=== PATIENT | male | born 1945 | race Hispanic/Latino ===

== ENCOUNTER 2018-11-06 14:07 | Emergency (ER) | payer MEDICARE ==
[~2018-11-06] VITALS: Ht 167.6 cm; Wt 100.7 kg
--- OUTSIDE RECORDS SUMMARY | 2018-11-06 14:10 | XMS REPORT | Clinical Summary ---
Author Author SARATH Ciash[address] [facility] Address Unknown Phone Unavailable Care Team Providers Care Member Of Technical Staff Name Role Phone Jose Guadalupe Mariano MD PCP Allergies No Known Allergies Medications End Date Status Medication Sig Dispensed Refills Start Date Active atorvastatin (LIPITOR) 40 Take 40 mg by 0 MG tablet mouth daily. Active carvedilol (COREG) 3.125 Take 3.125 mg 0 MG tablet by mouth 2 (two) times daily with breakfast and dinner. Active insulin aspart U-100 Inject 0 (NOVOLOG) 100 unit/mL subcutaneousl InPn y 3 (three) times daily with meals. Active insulin glargine (LANTUS) Inject 0 100 unit/mL injection subcutaneousl y nightly Use as directed . Active lisinopril-hydroCHLOROthi Take 1 tablet 0 azide by mouth 2 (PRINZIDE,ZESTORETIC) (two) times 10-12.5 mg per tablet daily. Active omega-3 fatty acids-fish Take 2 g by 0 oil 340-1,000 mg Cap per mouth 2 (two) capsule times daily. Active tamsulosin (FLOMAX) 0.4 Take 0.4 mg 0 mg Cap 24 hr capsule by mouth daily. 02/17/2018 Discontinued aspirin 81 MG EC tablet Take 81 mg by 0 mouth daily. 03/20/2018 aspirin 325 MG EC tablet Take 1 tablet 30 tablet 0 (325 mg 8 total) by mouth daily for 30 days. 03/19/2018 HYDROcodone-acetaminophen Take 1-2 120 tablet 0 (NORCO 10-325) 10-325 mg tablets by 8 per tablet mouth every 4 (four) hours as needed for Pain for up to 30 days. Max Daily Amount: 12 tablets Active Problems Problem Noted Date S/P knee replacement 02/17/2018 Arthritis of right knee 02/16/2018 DJD (degenerative joint disease) of knee 02/16/2018 Encounters Care Team Description Date Type Specialty Tanna Reid RN Follow-up 02/18/2018 Telephone Anesthesiology Joseph Garcia MD ARTHROPLASTY,KNEE UNILATERAL 02/16/2018 Surgery Annmarie Redman MD 02/16/2018 Anesthesia Event Joseph Garcia MD 02/16/2018 [facility] General Internal Medicine - Encounter 02/17/2018 Pretty Canela PA 02/08/2018 Orders Only after 11/05/2017 Social History Date Tobacco Use Types Packs/Day Years Used Former Smoker Smokeless Tobacco: Never Used Alcohol Use Drinks/Week oz/Week Comments Yes SOCIALLY Sex Assigned at Date Recorded Not on file Industry Job Start Date Occupation Not on file Not on file Not on file Travel End Travel History Travel Start No recent travel history available. Last Filed Vital Signs Time Taken Vital Sign Reading 02/17/2018 3:30 PM CDT Blood Pressure 151/70 02/17/2018 3:30 PM CDT Pulse 70 02/17/2018 3:30 PM CDT Temperature 36.9 C (98.4 F) 02/17/2018 3:30 PM CDT Respiratory Rate 17 02/17/2018 3:30 PM CDT Oxygen Saturation 96% - Inhaled Oxygen - Concentration 02/16/2018 7:23 AM CDT Weight 102.4 kg (225 lb 11.2 oz) 02/16/2018 7:23 AM CDT Height 167.6 cm (5' 6") 02/16/2018 7:23 AM CDT Body Mass Index 36.43 Plan of Treatment Not on file Implants Device Identifier Shelf Expiration Date Model / Serial / Lot Implanted Type Area Manufactur er 06/10/2019 6194-1-001 / / [id number] Cement Bone Smplx Hv 6194-1-001 - Cement/Eladio Right: Knee MONIQUE:ST [id number] ler/Luli BRITTON Implanted: Qty: 1 on 02/16/2018 by Joseph Steinberg MD 10/12/2022 5510-F-[id number] / / [id number] Comp Fem Cr Cholo No.4 R 5510-F-402 - Joints Right: Knee MONIQUE:ST [id number] BRITTON Implanted: Qty: 1 on 02/16/2018 by Joseph Krause MD 06/02/2022 5520-[id number] / / [id number] Baseplt Ayah Tib Cholo No.5 5520-[id number] Joints Right: Knee MONIQUE:ST - [id number] BRITTON Implanted: Qty: 1 on 02/16/2018 by Joseph Krause MD CS 08/09/2022 5530-G-[id number] / / [id number] Insrt Tib #5 9mm 5530-G-509 - Joints Right: Knee MONIQUE:ST [id number] BRITTON Implanted: Qty: 1 on 02/16/2018 by Joseph Krause MD CS Procedures Comments Procedure Name Priority Date/Time Associated Diagnosis RHYTHM STRIP - SCAN 02/18/2018 1:10 PM CDT TRANSFUSION SERVICE 02/17/2018 REPORT - SCAN 6:00 PM CDT POCT-GLUCOSE METER Routine 02/17/2018 12:18 PM CDT POCT-GLUCOSE METER Routine 02/17/2018 8:37 AM CDT HEMOGLOBIN AND HEMATOCRIT Routine 02/17/2018 4:41 AM CDT BASIC METABOLIC PANEL (7) Routine 02/17/2018 4:41 AM CDT VANCOMYCIN LEVEL, TROUGH Timed 02/16/2018 11:14 PM CDT POCT-GLUCOSE METER Routine 02/16/2018 8:49 PM CDT POCT-GLUCOSE METER Routine 02/16/2018 4:29 PM CDT POCT-GLUCOSE METER Routine 02/16/2018 2:46 PM CDT TISSUE EXAM AP Routine 02/16/2018 1:39 PM CDT ARTHROPLASTY,KNEE 02/16/2018 Osteoarthritis of right UNILATERAL 1:25 PM CDT knee, unspecified osteoarthritis type Case Notes 60 MINS PER FAX Special Needs (SPINAL/EP IDURAL WITH ADDUCTOR CANAL BLOCK, MONIQUE DIANE) ANESTHESIA CSE BLOCK Routine 02/16/2018 12:58 PM CDT ANESTHESIA PERIPHERAL Routine 02/16/2018 BLOCK 12:55 PM CDT TYPE AND SCREEN, Routine 02/16/2018 AUTOMATED 11:09 AM CDT POCT-GLUCOSE METER Routine 02/16/2018 10:47 AM CDT after 11/05/2017 Results * RHYTHM STRIP - SCAN (02/18/2018 1:10 PM CDT) Narrative Performed At * TRANSFUSION SERVICE REPORT - SCAN (02/17/2018 6:00 PM CDT) Narrative Performed At * POC-Glucose meter (02/17/2018 12:18 PM CDT) Only the most recent of 6 results within the time period is included. POC-Glucose Meter 242 (H)Comment: TESTED AT 70 - 110 mg/dL [address] [address] Specimen Blood Performing Organization Address City/[facility]/Zipcode Phone Number [address] [address] [facility] * Hemoglobin and hematocrit (02/17/2018 4:41 AM CDT) Hemoglobin 13.0 (L) 13.7 - 17.5 GM/DL [facility] Hematocrit 39.7 (L) 40.1 - 51.0 % [facility] Specimen Blood Performing Organization Address City/[facility]/Zipcode Phone Number [address] [address] [facility] * Basic Metabolic Panel (02/17/2018 4:41 AM CDT) Sodium 134 (L) 136 - 145 meq/L [facility] Potassium 4.5 3.5 - 5.1 meq/L [facility] Chloride 100 98 - 107 meq/L [facility] CO2 25 22 - 29 meq/L [facility] BUN 26 (H) 7 - 21 mg/dL [facility] Creatinine 1.71 (H) 0.57 - 1.25 mg/dL [facility] Glucose 211 (H) 70 - 105 mg/dL [facility] Calcium 8.8 8.4 - 10.2 mg/dL [facility] EGFR 40Comment: ESTIMATED GFR IS mL/min/1.73 sq m [facility] NOT ACCURATE CREATININE [facility] CLEARANCE IN PREDICTING GLOMERULAR FILTRATION RATE. ESTIMATED GFR IS NOT APPLICABLE FOR DIALYSIS PATIENTS. Specimen Blood Performing Organization Address City/State/[place] [address] [facility] * Vancomycin level, trough (02/16/2018 11:14 PM CDT) Vancomycin Tr 16.2 10.0 - 20.0 ug/mL [facility] Specimen Blood Performing Organization Address City/State/[place] [address] [facility] * Tissue Exam (02/16/2018 1:39 PM CDT) Case Report Surgical Pathology [facility] Report [facility] Case: [id number] Authorizing Provider:Joseph Garcia,Collected: 02/16/2018 Odalys MCALLISTER Ordering Location: [facility] Received: 02/16/2018 1428 SERVICES Pathologist: Coco Wilder MD Specimen:Condyle,Right Knee DIAGNOSIS RIGHT KNEE BONES, (PARTIAL) [facility] EXCISION: [facility] - OSTEOARTHRITIS - REACTIVE SYNOVIUM Signing Pathologist Direct Phone Line: [phone] COMMENT Slides from this sample are [facility] received on 03/15/2018 P.M. [facility] CPT Code(s) MO/ew [facility] [address] [facility] [address] CLINICAL HISTORY Osteoarthritis of right knee [facility] SPECIMEN SOURCE Right knee condyle [facility] GROSS DESCRIPTION The specimen is received in a [facility] fluidless container labeled [facility] with patient information and labeled "right knee condyle" and consists of multiple fragments of montejo knee bone and soft tissue measuring 7 x 6 x 2 cm in aggregate. Bone fragments have distinct osteophyte formation with focal areas of eburnation. Section code: A1 and A2, bone submitted for decalcification; A3, soft tissue and bone submitted for decalcification. CG/pl MICROSCOPIC DESCRIPTION The right knee sample shows [facility] sclerotic eburnated bone with [facility] features consistent with osteophytes. Some residual cartilages show clones of chondrocytes and fibrillation. There is reactive synovium. Atypia is not noted. Specimen Tissue - Condyle,Right Knee Performing Organization Address City/State/Zipcode Phone Number [facility] [address] [place] [address] [facility] * ANESTHESIA CSE BLOCK (02/16/2018 12:58 PM CDT) Narrative Performed At Maru Hilliard MD 02/16/2018 12:58 PM CSE Block Patient location during procedure: pre-op Start time: 02/16/2018 12:28 PM End time: 02/16/2018 12:44 PM Reason for block: procedure for pain, at surgeon's request and post-op pain management Staffing Anesthesiologist: MARU HILLIARD Resident/NURSE QUALITY: FEDERICA STRONG Performed by: anesthesiologist and resident/NURSE QUALITY Preanesthetic Checklist Completed: patient identified, site marked, surgical consent, pre-op evaluation, timeout performed, IV checked, risks and benefits discussed and monitors and equipment checked CSE Patient position: sitting Prep: Betadine and site prepped and draped Patient monitoring: heart rate, cafeteria monitor and continuous pulse ox Approach: midline Spinal Needle Needle type: Pencan Needle gauge: 25 G Needle length: 12.7cm. Epidural Needle Injection technique: SUSY saline Needle type: Tuohy Needle gauge: 17 G Needle length: 9 cm Needle insertion depth: 6 cm Location: lumbar (1-5) Catheter Catheter type: end hole Catheter size: 19g. Catheter at skin depth: 11 cm Assessment Sensory level: T10 Events: cerebrospinal fluid and after spinal Additional Notes Patient tolerated the procedure well. Procedure Note Maru Hilliard MD - 02/16/2018 12:55 PM CDT CSE Block Patient location during procedure: pre-op Start time: 02/16/2018 12:28 PM End time: 02/16/2018 12:44 PM Reason for block: procedure for pain, at surgeon's request and post-op pain management Staffing Anesthesiologist: MARU HILLIARD Resident/NURSE QUALITY: FEDERICA STRONG Performed by: anesthesiologist and resident/NURSE QUALITY Preanesthetic Checklist Completed: patient identified, site marked, surgical consent, pre-op evaluation, timeout performed, IV checked, risks and benefits discussed and monitors and equipment checked CSE Patient position: sitting Prep: Betadine and site prepped and draped Patient monitoring: heart rate, cafeteria monitor and continuous pulse ox Approach: midline Spinal Needle Needle type: Pencan Needle gauge: 25 G Needle length: 12.7cm. Epidural Needle Injection technique: SUSY saline Needle type: Tuohy Needle gauge: 17 G Needle length: 9 cm Needle insertion depth: 6 cm Location: lumbar (1-5) Catheter Catheter type: end hole Catheter size: 19g. Catheter at skin depth: 11 cm Assessment Sensory level: T10 Events: cerebrospinal fluid and after spinal Additional Notes Patient tolerated the procedure well. * ANESTHESIA PERIPHERAL BLOCK (02/16/2018 12:55 PM CDT) Narrative Performed At Maru Hilliard MD 02/16/2018 12:55 PM Peripheral Block Patient location during procedure: pre-op Start time: 02/16/2018 12:48 PM End time: 02/16/2018 12:52 PM Reason for block: procedure for pain, at surgeon's request and post-op pain management Staffing Anesthesiologist: MARU HILLIARD Resident/NURSE QUALITY: FEDERICA STRONG Performed by: anesthesiologist and resident/NURSE QUALITY Preanesthetic Checklist Completed: patient identified, site marked, surgical consent, pre-op evaluation, timeout performed, IV checked, risks and benefits discussed and monitors and equipment checked Peripheral Block Patient position: supine Prep: ChloraPrep and site prepped and draped Patient monitoring: heart rate, cafeteria monitor and continuous pulse ox Block type: Adductor canal Laterality: right Injection technique: catheter Procedures: ultrasound guided and landmark technique Local infiltration: ropivicaine Infiltration strength: 0.5 % Dose: 20 mL Needle Needle type: Tuohy Needle gauge: 17 G Needle length: 100 mm Catheter type: open end Catheter size: 19 G Test dose: negative Assessment Injection assessment: negative aspiration for heme, no paresthesia on injection, incremental injection and local visualized surrounding nerve on ultrasound Paresthesia pain: none Heart rate change: no Slow fractionated injection: yes Procedure Note Maru Hilliard MD - 02/16/2018 12:53 PM CDT Peripheral Block Patient location during procedure: pre-op Start time: 02/16/2018 12:48 PM End time: 02/16/2018 12:52 PM Reason for block: procedure for pain, at surgeon's request and post-op pain management Staffing Anesthesiologist: MARU HILLIARD Resident/NURSE QUALITY: FEDERICA STRONG Performed by: anesthesiologist and resident/NURSE QUALITY Preanesthetic Checklist Completed: patient identified, site marked, surgical consent, pre-op evaluation, timeout performed, IV checked, risks and benefits discussed and monitors and equipment checked Peripheral Block Patient position: supine Prep: ChloraPrep and site prepped and draped Patient monitoring: heart rate, cafeteria monitor and continuous pulse ox Block type: Adductor canal Laterality: right Injection technique: catheter Procedures: ultrasound guided and landmark technique Local infiltration: ropivicaine Infiltration strength: 0.5 % Dose: 20 mL Needle Needle type: Tuohy Needle gauge: 17 G Needle length: 100 mm Catheter type: open end Catheter size: 19 G Test dose: negative Assessment Injection assessment: negative aspiration for heme, no paresthesia on injection, incremental injection and local visualized surrounding nerve on ultrasound Paresthesia pain: none Heart rate change: no Slow fractionated injection: yes * Type and screen, automated (02/16/2018 11:09 AM CDT) ABO/RH AUTOMATED (BEAKER) A POSITIVE [facility] Ab Scrn NEGATIVE [facility] Specimen Blood Performing Organization Address City/State/Zipcode Phone Number [facility] [address] [place] [address] [facility] after 11/05/2017 Insurance Payer Benefit Subscriber ID Type Phone Address Plan / Group [facility] xxxxxxxxxxx MEDICARE ADV xxxxxxxxxx Other Govt FOR LIFE (, [place], [employer], etc.) Advance Directives For more information, please contact: [facility] [address] [place] [address] Date Inactivated Comments Code Status Date Activated 02/16/2018 5:18 PM Full Code 02/16/2018 7:59 AM This code status was determined by: Patient
--- OUTSIDE RECORDS SUMMARY | 2018-11-06 14:10 | XMS REPORT ---
Author Author [facility] Address Unknown Phone Unavailable Care Team Providers Care Management Rep Name Role Phone JOSE CARLOS GARCIA Unavailable Unavailable Problems This patient has no known problems. Allergies, Adverse Reactions, Alerts This patient has no known allergies or adverse reactions. Medications This patient has no known medications. Results Test Description Test Time Test Comments Text Results Atomic Results Result Comments TISSUE EXAM 2018-03-16 17:17:00 Surgical Pathology Report Case: [id number] Authorizing Provider: Joseph Garcia, Collected: 02/16/2018 1339 MD Ordering Location: [facility] Received: 02/16/2018 1428 SERVICES Pathologist: Coco Wilder MD Specimen: Sergei lewisle,Right Knee RIGHT KNEE BONES, (PARTIAL) EXCISION: - OSTEOARTHRITIS - REACTIVE SYNOVIUM Signing Pathologist Direct Phone Line: [phone] signed by Coco Wilder MD on 03/16/2018 at 5:17 PMSlides from this sample are received on 03/15/2018 P.M. MO/[id number] of right kneeRight knee condyleThe specimen is received in a fluidless container labeled with patient information and labeled "right knee condyle" and consists of multiple fragments of montejo knee bone and soft tissue measuring 7 x 6 x 2 cm in aggregate. Bone fragments have distinct osteophyte formation with focal areas of eburnation. Section code: A1 and A2, bone submitted for decalcification; A3, soft tissue and bone submitted for decalcification. CG/pl The right knee sample shows sclerotic eburnated bone with features consistent with osteophytes. Some residual cartilages show clones of chondrocytes and fibrillation. There is reactive synovium. Atypia is not noted. POCT-GLUCOSE METER 2018-02-17 12:22:00 POC-GLUCOSE METER (BEAKER) (test vowr=9605) 242 mg/dL 70-110 TESTED AT [facility] [address] [facility] [address] POCT-GLUCOSE [id number] 08:47:00* Test Item Value Reference Range Comments POC-GLUCOSE METER (BEAKER) (test dovf=8862) 200 mg/dL 70-110 TESTED AT [place] [id number] [facility] [address] BASIC METABOLIC [id number] 05:14:00* Test Item Value Reference Range Comments SODIUM (BEAKER) (test gvin=548) 134 meq/L 136-145 POTASSIUM (BEAKER) (test pmyc=781) 4.5 meq/L 3.5-5.1 CHLORIDE (BEAKER) (test leth=858) 100 meq/L 98-107 CO2 (BEAKER) (test gvnz=238) 25 meq/L 22-29 BLOOD UREA NITROGEN (BEAKER) (test iolh=220) 26 mg/dL 7-21 CREATININE (BEAKER) (test plwg=383) 1.71 mg/dL 0.57-1.25 GLUCOSE RANDOM (BEAKER) (test onnj=968) 211 mg/dL 70-105 CALCIUM (BEAKER) (test pakl=083) 8.8 mg/dL 8.4-10.2 EGFR (BEAKER) (test dypg=7821) 40 mL/min/1.73 sq m ESTIMATED GFR IS NOT ACCURATE CREATININE CLEARANCE IN PREDICTING GLOMERULAR FILTRATION RATE. ESTIMATED GFR IS NOT APPLICABLE FOR DIALYSIS PATIENTS. HEMOGLOBIN AND [id number] 04:51:00* Test Item Value Reference Range Comments HEMOGLOBIN (BEAKER) (test nqro=508) 13.0 GM/DL 13.7-17.5 HEMATOCRIT (BEAKER) (test hzme=285) 39.7 % 40.1-51.0 VANCOMYCIN LEVEL, [id number] 00:13:00* Test Item Value Reference Range Comments VANCOMYCIN TROUGH (BEAKER) (test cdjm=800) 16.2 ug/mL 10.0-20.0 POCT-GLUCOSE [id number] 21:07:00* Test Item Value Reference Range Comments POC-GLUCOSE METER (BEAKER) (test zocx=0013) 116 mg/dL 70-110 TESTED AT [facility] [address] [facility] [address] POCT-GLUCOSE [id number] 16:33:00* Test Item Value Reference Range Comments POC-GLUCOSE METER (BEAKER) (test nnki=6282) 65 mg/dL 70-110 TESTED AT [address] [address] POCT-GLUCOSE [id number] 14:48:00* Test Item Value Reference Range Comments POC-GLUCOSE METER (BEAKER) (test vbxb=9264) 63 mg/dL 70-110 TESTED AT [address] [address] POCT-GLUCOSE [id number] 10:48:00* Test Item Value Reference Range Comments POC-GLUCOSE METER (BEAKER) (test srrt=2929) 95 mg/dL 70-110 TESTED AT [address] [address]
== END 2018-11-06 14:23 | disposition home or self-care (01) ==
LOC: ER 14:07
DX: L03.116 Cellulitis of left lower limb (principal); I10 Essential (primary) hypertension; E11.9 Type 2 diabetes mellitus without complications
CPT/HCPCS: 99282

== ENCOUNTER 2019-11-12 10:35 | Inpatient (IN) | payer MEDICARE, OTHER ==
[~2019-11-12] VITALS: Ht 167.6 cm; Wt 103.4 kg
[2019-11-12] MEDS ORDERED: SODIUM CHLORIDE 0.9% 1000ML 1,000 ML IV STA (10:54)
[2019-11-12] MEDS ORDERED: PIPER-TAZ 3.375 GM 50 ML IV ONE (11:00)
[2019-11-12] MEDS ORDERED: VANCOMYCIN 1GM/NS 250 ML 250 ML IV ONE (11:00)
[2019-11-12 11:10] LABS: BASOPHILS % 0.2 % (0.0-1.0); EOSINOPHILS # (AUTO) 0.2 (0.0-0.4); EOSINOPHILS % 1.3 % (0.0-6.0); HEMATOCRIT 39.3 % (38.2-49.6); HEMOGLOBIN 13.4 g/dL (14.0-18.0); LYMPHOCYTES # (AUTO) 2.2 (1.0-3.2); LYMPHOCYTES % 19.6 % (18.0-39.1); MEAN CORPUSCULAR HEMOGLOBIN 31.6 pg (28-32); MEAN CORPUSCULAR HGB CONC 34.1 g/dL (31-35); MEAN CORPUSCULAR VOLUME 92.7 fL (81-99); MONOCYTES # (AUTO) 1.2 (0.2-0.8); MONOCYTES % 10.5 % (4.4-11.3); NEUTROPHILS # (AUTO) 7.7 (2.1-6.9); NEUTROPHILS % 68.1 % (38.7-80.0); PLATELET COUNT 270 x10e3/uL (140-360); RED BLOOD COUNT 4.24 x10e6/uL (4.3-5.7); RED CELL DISTRIBUTION WIDTH 14.4 % (11.7-14.4)
[2019-11-12] MEDS ORDERED: FLECTOR1 EACH (11:12)
[2019-11-12] MEDS ORDERED: TIZANIDINE HCL4 M1 PO (11:12)
[2019-11-12] MEDS ORDERED: LISINOPRIL-HCT1 EACH PO (11:12)
[2019-11-12] MEDS ORDERED: ASPIR 8181 MG PO (11:15)
[2019-11-12] MEDS ORDERED: FLOMAX0.4 MG PO (11:15)
[2019-11-12] MEDS ORDERED: ULTRAM50 MG PO (11:15)
[2019-11-12] MEDS ORDERED: CARVEDILOL3.125 MG PO (11:15)
[2019-11-12] MEDS ORDERED: OMEGA 3 1,0001 EACH PO (11:15)
[2019-11-12] MEDS ORDERED: LANTUS 3ML100 UNITS/ SC (11:15)
[2019-11-12 11:20] LABS: INR 1.04; PROTHROMBIN TIME 14.2 seconds (11.9-14.5)
[2019-11-12 11:21] LABS: PARTIAL THROMBOPLASTIN TIME 32.4 seconds (23.8-35.5)
[2019-11-12 11:29] LABS: ALBUMIN/GLOBULIN RATIO 0.6 (0.8-2.0); ANION GAP 14.9 mmol/L (8-16); CALCIUM 10.4 mg/dL (8.4-10.2); CREATININE, SERUM 1.78 mg/dL (0.72-1.25); POTASSIUM 3.9 mmol/L (3.5-5.1)
[2019-11-12 11:35] LABS: CREATINE KINASE MB 1.3 ng/mL (0-5.0)
[2019-11-12] MEDS ORDERED: ONDANSETRON HCL INJ 2MG/ML 2ML 2 MG/ML VIAL IV PRN ×2 (11:45→12:30)
[2019-11-12] MEDS ORDERED: HYDROCODONE/APAP 7.5MG-325MG 1 EA TAB PO NR (11:45)
[2019-11-12] MEDS ORDERED: TETANUS/DIPHTHERIA TOX ADULT 0.5 ML SYR IM ONE (12:00)
--- NOTE | 2019-11-12 12:00 | Diagnostic Imaging Report ---
Exam: Right wrist 3 views, right hand 3 views History: Pain, swelling, no history of trauma Comparison: None. Findings: No acute, displaced fracture or dislocation. Appropriate alignment between the distal radius, lunate, and capitate is maintained on the lateral wrist radiograph. Joint spaces are relatively well-maintained. There is narrowing and subchondral cystic change of the first carpometacarpal joint. Soft tissues are notable for atherosclerotic vascular calcifications and mild diffuse swelling of the hand. Impression: No acute osseous abnormality. 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 Signed by: Dr. Joseph Winston M.D. on 11/12/2019 11:56 AM
[2019-11-12] MEDS ORDERED: ATORVASTATIN CA20 MG PO (13:09)
--- NOTE | 2019-11-12 13:40 | NUR ---
called placed to his DUNIA; to drop off his cell [facility]
[2019-11-12] MEDS ORDERED: PIPERACILLIN/TAZO 2.25 GM 50 ML IV SCH (15:00)
[2019-11-12] MEDS ORDERED: NOVOLOG100 UNIT/1 SC ×3 (15:08)
[2019-11-12] MEDS ORDERED: GLIMEPIRIDE4 MG PO (15:08)
[2019-11-12 15:20] VITALS: BP 139/75
[2019-11-12 16:07] VITALS: BP 139/75
[2019-11-12 16:13] VITALS: BP 139/75
[2019-11-12 17:17] VITALS: BP 139/75
[2019-11-12] MEDS ORDERED: ACETAMINOPHEN 325 MG TAB PO PRN (17:30)
[2019-11-12] MEDS ORDERED: CLONIDINE HCL 0.1 MG TAB PO PRN (17:30)
[2019-11-12] MEDS ORDERED: SODIUM CHLORIDE 0.9% 250ML 250 ML ONE (18:15)
[2019-11-12] MEDS: CEFEPIME 1GM/NS 0.9% 50 ML 50 ML IV SCH (18:29)
[2019-11-12] MEDS: ENOXAPARIN SOD INJ 40 MG/0.4 ML SYR SC SCH (18:29)
--- NOTE | 2019-11-12 19:35 | NUR ---
RECEIVED THE PATIENT IN BED AOX3 RT HAND CELLULITIS RED AND SWOLLEN LEFT BKA. TELE #[phone] SHOWS SR .DENIES PAIN TOR .CALL LIGHT WITH IN REACH .CONTINUE TO MONITOR
[2019-11-12 19:57] VITALS: BP 139/75
[2019-11-12 20:00] VITALS: BP 136/74
--- NOTE | 2019-11-12 20:16 | NUR ---
ORTHOPEDIC CONSULTATION 74 year old right hand dominant male presents to the ED with 5 day history of right hand pain and swelling that worsened significantly over the past 24 hours. He states that he had moved a bag of grass with the right hand earlier in the week. Denies any fevers, chills or presently worsening pain. Pain localized to dorsum of right hand. No numbness, paresthesias or loss of distal motor function. No other area of pain. No history of prior injury to the area. PMDHx: HTN, Hyperlipidemia, Diabetes, Gout SurgHx: Back Surgery, Hernia Repair, Left Knee Surgery, Total Knee Arthroplasty Allergies: NKDA FamHx: Non-contributory SocHx: Denies Tob, EtOH or Drgu Use Meds: See Reconciliation VS T 97.9 (Max 98.4) HR 75 RR 20 BP 139/75 O2 99% Gen: No Acute Distress, AAOx3 Right Hand Swelling noted on dorsum of hand, just proximal to wrist crease extending to metacarpal heads Mild erythema No open lesions or sores No obvious fluctuance or collection noted Limited AROM of MCP and Wrist Motor: + AIN, PIN, Radial, Median, Ulnar Sensation grossly intact Pulses + Radial, good capillary refill Compartments soft Xrays: Right Hand and Wrist : No gross fracture or dislocation noted. Degenerative changes noted at PIP and DIP joints of several digits WBC 11.26, Hgb 13.4/39.3 74 year old male with right hand & wrist cellulitis Plan for right hand MRI to rule out abscess Continue antibiotics as per medicine/ID Warm compresses Elevation Follow up ESR & CRP Jacqueline Curry, DO [facility] [place]
[2019-11-12] MEDS ORDERED: FAMOTIDINE 20 MG/2 ML VIAL IV SCH (21:00)
[2019-11-12] MEDS: ATORVASTATIN 20 MG TAB PO SCH (21:04)
[2019-11-12] MEDS: HYDROCODONE/APAP 7.5MG-325MG 1 EA TAB PO PRN (21:04)
[2019-11-12] MEDS: INSULIN LISPRO 100 UNIT/1 ML 3ML VIAL SQ SCH (21:15)
[2019-11-13] VITALS (8 sets, daily range): BP systolic 141–148; BP diastolic 68–81
[2019-11-13] MEDS: CEFEPIME 1GM/NS 0.9% 50 ML 50 ML IV SCH ×2 (05:07→16:39)
[2019-11-13 05:14] LABS: CLARITY,URINE CLEAR (CLEAR); COLOR,URINE YELLOW (YELLOW); LEUKOCYTE ESTERASE ,URINE NEGATIVE (NEGATIVE); NITRITE,URINE NEGATIVE (NEGATIVE); PROTEIN,URINE DIPSTICK 2+ (NEGATIVE)
[2019-11-13 05:15] LABS: BILIRUBIN,URINE NEGATIVE (NEGATIVE); KETONES,URINE NEGATIVE (NEGATIVE); URINE UROBILINOGEN 1 mg/dL (0.2 - 1)
--- NOTE | 2019-11-13 05:28 | NUR ---
PT C/O PAIN AT RIGHT HAND GIVEN ORDERED PAIN MEDICATION .URINE SENT TO LAB,CALL LIGHT WITH IN REACH ,CONTINUE TO MONITOR
[2019-11-13 05:29] LABS: BACTERIA,URINE FEW /HPF; EPITHELIAL CELLS,URINE RARE /LPF; WBC,URINE (MAN) 0-5 /HPF (0-5)
[2019-11-13 05:49] LABS: BASOPHILS % 0.1 % (0.0-1.0); EOSINOPHILS # (AUTO) 0.2 (0.0-0.4); EOSINOPHILS % 1.8 % (0.0-6.0); HEMATOCRIT 38.5 % (38.2-49.6); HEMOGLOBIN 12.7 g/dL (14.0-18.0); LYMPHOCYTES # (AUTO) 2.8 (1.0-3.2); MEAN CORPUSCULAR HEMOGLOBIN 30.8 pg (28-32); MEAN CORPUSCULAR VOLUME 93.4 fL (81-99); NEUTROPHILS % 59.7 % (38.7-80.0); PLATELET COUNT 256 x10e3/uL (140-360); RED BLOOD COUNT 4.12 x10e6/uL (4.3-5.7); RED CELL DISTRIBUTION WIDTH 14.3 % (11.7-14.4)
[2019-11-13 06:08] LABS: ALBUMIN/GLOBULIN RATIO 0.6 (0.8-2.0); CALCIUM 9.7 mg/dL (8.4-10.2); CREATININE, SERUM 1.62 mg/dL (0.72-1.25)
--- NOTE | 2019-11-13 07:00 | NUR ---
BEDSIDE SHIFT REPORT RECEIVED FROM THE COLD HEADER OPERATOR RN. EDUCATED PT ABOUT FALL PRECAUTIONS. PT VERBALIZED UNDERSTANDING. CALL LIGHT WITH IN EASY REACH. INSTRUCTED PT TO USE CALL LIGHT FOR ALL THE NEEDS. BED IS LOW AND LOCKED. SIDE RAILS X2. BED ALARM IS ON. PT DENIES NEEDS AT THIS TIME.
--- NOTE | 2019-11-13 07:08 | NUR ---
BEDSIDE REPORT GIVEN TO THE ONCOMING NURSE
[2019-11-13] MEDS: INSULIN LISPRO 100 UNIT/1 ML 3ML VIAL SQ SCH ×4 (08:30→21:15)
[2019-11-13] MEDS: ASPIRIN 81 MG CHEW TAB PO SCH (09:11)
[2019-11-13] MEDS: VANCOMYCIN 1GM/NS 250 ML 250 ML IV SCH (09:11)
[2019-11-13] MEDS: CARVEDILOL 3.125 MG TAB PO SCH ×2 (09:12→16:23)
[2019-11-13] MEDS: TAMSULOSIN HCL 0.4 MG CAP PO SCH (09:12)
--- NOTE | 2019-11-13 10:00 | NUR ---
WARM PROVIDED FOR THE PT. RIGHT HAND ELEVATED WITH PILLOWS PER THE ORDER.
--- NOTE | 2019-11-13 12:48 | NUR ---
ORTHOPEDIC PROGRESS NOTE Patient seen & examined sitting in chair in room. Patient continues to complain of right hand swelling. No new fevers or chills, no worsening in pain. VS 97.8 HR 84 RR 22 BP 148/68 O2 96% Right Hand Improved erythema, persistent swelling No pain with PROM of wrist and MCP Motor: + AIN, PIN, Radial, Median, Ulnar Sensation grossly intact Pulses + Radial, good capillary refill Compartments soft 74 year old M with Right Hand Cellulitis Follow up MRI Continue Antibiotics as per Med/ID Analgesics Strict Elevation DVT Prophylaxis Warm Compresses Discussed case with nurse and patient Jacqueline Curry, DO [facility] [place]
[2019-11-13] MEDS: INSULIN GLARGINE 100 UNITS/ML VIAL SQ SCH (12:55)
[2019-11-13] MEDS: GLIMEPIRIDE 2 MG TAB PO SCH (12:55)
--- NOTE | 2019-11-13 15:16 | Diagnostic Imaging Report ---
TECHNIQUE: Magnetic resonance imaging of the RIGHT HAND was performed WITHOUT injected contrast. HISTORY: Hand pain, cellulitis COMPARISON: None. FINDINGS: Bones: No focal or infiltrative bone marrow replacing abnormalities identified. No acute fracture or osteonecrosis. Joints: No focal lesions are seen. Soft Tissues: Soft tissue swelling throughout the hand, most prominent dorsally. No discrete abscess. Focus of susceptibility artifact involving the dorsal ulnar side overlying the fourth metacarpal coronal image 26 and axial image 19. IMPRESSION: Soft tissue edema/cellulitis of the right hand. No abscess or osteomyelitis. Focus of susceptibility artifact dorsal ulnar hand overlying the fourth metacarpal may reflect small foreign body. Signed by: Dr. Nathan Sams M.D. on 11/13/2019 3:12 PM
[2019-11-13] MEDS: ENOXAPARIN SOD INJ 40 MG/0.4 ML SYR SC SCH (16:23)
[2019-11-13] MEDS: HYDROCODONE/APAP 7.5MG-325MG 1 EA TAB PO PRN (16:25)
--- NOTE | 2019-11-13 19:00 | NUR ---
BEDSIDE SHIFT REPORT GIVEN TO THE CARGO MATE RN. PT DENIED FURTHER NEEDS.
--- NOTE | 2019-11-13 19:05 | NUR ---
Bedside nursing report with morning nurse. Pt sitting up in bed. Pt c/o mild pain to right hand, instructed to elevated hand on pillow. Call light within reach. Bed low and locked.
[2019-11-13] MEDS: ATORVASTATIN 20 MG TAB PO SCH (21:15)
[2019-11-14] VITALS (9 sets, daily range): BP systolic 92–174; BP diastolic 48–77
[2019-11-14] MEDS: CEFEPIME 1GM/NS 0.9% 50 ML 50 ML IV SCH ×2 (05:30→16:53)
[2019-11-14 05:35] LABS: BASOPHILS % 0.2 % (0.0-1.0); EOSINOPHILS # (AUTO) 0.3 (0.0-0.4); HEMATOCRIT 34.7 % (38.2-49.6); HEMOGLOBIN 11.6 g/dL (14.0-18.0); LYMPHOCYTES # (AUTO) 2.3 (1.0-3.2); LYMPHOCYTES % 25.1 % (18.0-39.1); MEAN CORPUSCULAR HEMOGLOBIN 31.2 pg (28-32); MEAN CORPUSCULAR HGB CONC 33.4 g/dL (31-35); MEAN CORPUSCULAR VOLUME 93.3 fL (81-99); MONOCYTES # (AUTO) 0.9 (0.2-0.8); MONOCYTES % 10.2 % (4.4-11.3); NEUTROPHILS # (AUTO) 5.6 (2.1-6.9); NEUTROPHILS % 61.3 % (38.7-80.0); PLATELET COUNT 267 x10e3/uL (140-360); RED BLOOD COUNT 3.72 x10e6/uL (4.3-5.7); RED CELL DISTRIBUTION WIDTH 14.1 % (11.7-14.4)
[2019-11-14 06:02] LABS: ANION GAP 11.7 mmol/L (8-16); CALCIUM 9.2 mg/dL (8.4-10.2); CREATININE, SERUM 1.43 mg/dL (0.72-1.25); POTASSIUM 3.7 mmol/L (3.5-5.1)
--- NOTE | 2019-11-14 07:00 | NUR ---
Received patient lying in bed with eyes open. Respiration even and unlabored without SOB. Call light in reach.
[2019-11-14] MEDS: INSULIN LISPRO 100 UNIT/1 ML 3ML VIAL SQ SCH ×4 (07:30→21:50)
[2019-11-14] MEDS: VANCOMYCIN 1GM/NS 250 ML 250 ML IV SCH ×2 (08:28→21:00)
[2019-11-14] MEDS: TAMSULOSIN HCL 0.4 MG CAP PO SCH (08:29)
[2019-11-14] MEDS: GLIMEPIRIDE 2 MG TAB PO SCH (08:29)
[2019-11-14] MEDS: CARVEDILOL 3.125 MG TAB PO SCH ×2 (08:29→16:53)
[2019-11-14] MEDS: ASPIRIN 81 MG CHEW TAB PO SCH (08:29)
[2019-11-14] MEDS: INSULIN GLARGINE 100 UNITS/ML VIAL SQ SCH (08:32)
[2019-11-14] MEDS: COLCHICINE 0.6 MG TAB PO SCH ×2 (11:53→16:52)
[2019-11-14] MEDS: ENOXAPARIN SOD INJ 40 MG/0.4 ML SYR SC SCH (16:53)
[2019-11-14] MEDS ORDERED: ENOXAPARIN 30 MG/0.3 ML SYR SC SCH ×2 (17:00)
[2019-11-14] MEDS: HYDROCODONE/APAP 7.5MG-325MG 1 EA TAB PO PRN (17:20)
--- NOTE | 2019-11-14 19:05 | NUR ---
Report given to overnight babysitter. Respiration even and unlabored without SOB. Call light in reach.
--- NOTE | 2019-11-14 19:15 | NUR ---
Completed nursing report with morning nurse. Pt sitting up in bed. Denies pain at this time. Call light within reach. Bed low and locked.
--- NOTE | 2019-11-14 20:16 | NUR ---
ORTHOPEDIC PROGRESS NOTE Patient seen & examined, feeling mildly better. No fevers or chills. Improved function and decreased swelling VS T 99.6 HR 75 RR 20 BP 147/66 O2 95% Right Hand Decreased swelling & erythema Improved motion Motor: + AIN, PIN, Radial, Median, Ulnar Sensation grossly intact Pulses + Radial Compartments soft No TTP of metacarpal bases especially at 3rd and 4th base No fluctuance or abscess appreciated 74 year old male with right hand cellulitis Continue Antibiotics as per ID/medicine Analgesics Elevation RUE Warm compresses No acute orthopedic intervention required at this time If condition worsens, please feel free to reconsult Follow up in office in 1 week Jacqueline Curry, DO
[2019-11-14] MEDS: ATORVASTATIN 20 MG TAB PO SCH (21:00)
[2019-11-15] VITALS (9 sets, daily range): BP systolic 120–165; BP diastolic 60–92
[2019-11-15 05:30] LABS: BASOPHILS % 0.2 % (0.0-1.0); EOSINOPHILS # (AUTO) 0.3 (0.0-0.4); EOSINOPHILS % 3.4 % (0.0-6.0); HEMATOCRIT 34.2 % (38.2-49.6); HEMOGLOBIN 11.3 g/dL (14.0-18.0); LYMPHOCYTES # (AUTO) 2.2 (1.0-3.2); LYMPHOCYTES % 25.1 % (18.0-39.1); MEAN CORPUSCULAR HEMOGLOBIN 30.8 pg (28-32); MEAN CORPUSCULAR VOLUME 93.2 fL (81-99); MONOCYTES # (AUTO) 0.9 (0.2-0.8); MONOCYTES % 10.4 % (4.4-11.3); NEUTROPHILS # (AUTO) 5.4 (2.1-6.9); NEUTROPHILS % 60.7 % (38.7-80.0); PLATELET COUNT 285 x10e3/uL (140-360); RED BLOOD COUNT 3.67 x10e6/uL (4.3-5.7)
[2019-11-15] MEDS: CEFEPIME 1GM/NS 0.9% 50 ML 50 ML IV SCH ×2 (05:30→17:23)
[2019-11-15 05:52] LABS: ANION GAP 13.8 mmol/L (8-16); CALCIUM 9.4 mg/dL (8.4-10.2); CREATININE, SERUM 1.44 mg/dL (0.72-1.25); POTASSIUM 3.8 mmol/L (3.5-5.1)
[2019-11-15] MEDS: HYDROCODONE/APAP 7.5MG-325MG 1 EA TAB PO PRN ×2 (05:55→21:03)
--- NOTE | 2019-11-15 06:00 | NUR ---
Pt c/o 9/10 pain to right ankle, medicated with prn [place]. No acute distress noted. Call light within reach.
--- NOTE | 2019-11-15 07:10 | NUR ---
Received patient lying in bed with eyes open. Respiration even and unlabored without SOB. Call light in reach
[2019-11-15] MEDS: INSULIN LISPRO 100 UNIT/1 ML 3ML VIAL SQ SCH ×4 (07:30→21:00)
[2019-11-15] MEDS: VANCOMYCIN 1GM/NS 250 ML 250 ML IV SCH (08:44)
[2019-11-15] MEDS: ASPIRIN 81 MG CHEW TAB PO SCH (08:44)
[2019-11-15] MEDS: GLIMEPIRIDE 2 MG TAB PO SCH (08:44)
[2019-11-15] MEDS: TAMSULOSIN HCL 0.4 MG CAP PO SCH (08:45)
[2019-11-15] MEDS: CARVEDILOL 3.125 MG TAB PO SCH ×2 (08:45→17:23)
[2019-11-15] MEDS: COLCHICINE 0.6 MG TAB PO SCH ×2 (08:45→17:23)
[2019-11-15] MEDS: INSULIN GLARGINE 100 UNITS/ML VIAL SQ SCH (08:46)
[2019-11-15] MEDS: ENOXAPARIN SOD INJ 40 MG/0.4 ML SYR SC SCH (17:23)
--- NOTE | 2019-11-15 19:13 | NUR ---
Report given to wrapper caser. Respiration even and unlabored without SOB. Call light in reach.
[2019-11-15] MEDS ORDERED: ONDANSETRON HCL 4 MG ORAL DISINTEGRATING TAB PO PRN (19:15)
[2019-11-15] MEDS: ATORVASTATIN 20 MG TAB PO SCH (21:01)
--- NOTE | 2019-11-15 21:05 | NUR ---
PATIENT C/O 10 pain to right ankle, medicated with PRN [place] PO. No acute distress noted. Call light within reach
--- NOTE | 2019-11-15 21:40 | NUR ---
GOOD RELIEF OBTAINED WITH PRN [place] FOR LEG PAIN 10/19, PATIENT SEEN SLEEPING, NO DISTRESS NOTED, CALL LIGHT WITHIN REACH, WILL CONTINUE TO MONITOR
[2019-11-16] VITALS (8 sets, daily range): BP systolic 118–162; BP diastolic 66–88
[2019-11-16] MEDS: CEFEPIME 1GM/NS 0.9% 50 ML 50 ML IV SCH (05:15)
[2019-11-16] MEDS: COLCHICINE 0.6 MG TAB PO SCH (08:26)
[2019-11-16] MEDS: ASPIRIN 81 MG CHEW TAB PO SCH (08:26)
[2019-11-16] MEDS: GLIMEPIRIDE 2 MG TAB PO SCH (08:26)
[2019-11-16] MEDS: CARVEDILOL 3.125 MG TAB PO SCH (08:27)
[2019-11-16] MEDS: TAMSULOSIN HCL 0.4 MG CAP PO SCH (08:27)
[2019-11-16] MEDS ORDERED: VANCOMYCIN HCL 1.25 GM in SODIUM CHLORIDE 0.9% 250ML 250 ML IV SCH (08:30)
[2019-11-16] MEDS: INSULIN GLARGINE 100 UNITS/ML VIAL SQ SCH (09:08)
[2019-11-16] MEDS: INSULIN LISPRO 100 UNIT/1 ML 3ML VIAL SQ SCH ×2 (09:08→11:30)
--- NOTE | 2019-11-16 11:44 | NUR ---
IMM letter delivered and explained to pt. He verbalized understanding. States he's ready to discharge home. Signed copy placed in chart. Copy to pt.
--- NOTE | 2019-11-16 19:19 | NUR ---
Bedside shift rounding complete, report given to oncoming nurse, pt stable at this time.
--- NOTE | 2019-11-17 04:16 | Discharge Summary ---
PRIMARY CARE DOCTOR: Dr. Jose Guadalupe Mariano. FINAL DIAGNOSIS: Right hand and right wrist cellulitis. SECONDARY DIAGNOSES: 1. Stage 3 chronic kidney disease due to diabetes, stable. 2. Obesity. 3. Right ankle gout. CONSULTANTS: Dr. Curry, Orthopedics. PROCEDURE/STUDIES PERFORMED: 1. Right arm venous Doppler was negative for DVT. 2. Right hand MRI was negative for abscess. HISTORY: Per [facility] HOSPITAL COURSE: The patient was put on IV vancomycin and cefepime. His right hand cellulitis responded well. At this time, the patient will go home on renal dose Keflex for another week. The patient was evaluated by Orthopedic surgeon. While in the hospital, the patient also has a mild flare up of his right ankle gout. Colchicine was started and he did well with that. I have also updated his primary care doctor about this visit, and the patient will follow up with him in one week. The patient was seen and examined today. It took 32 minutes total to discharge this patient today including updating the PCP. CONDITION ON DISCHARGE: Improved. DISCHARGE MEDICATIONS: Please see medication reconciliation form. MD DHRUV Loja/STEVE /[id number] cc: [facility]
== END 2019-11-16 12:55 | disposition home or self-care (01) | DRG 603 ==
LOC: ER 10:35 → ERHOLD 12:28 → MED/SURG2 14:53
PROVIDERS: ADMIT Internal Medicine; ATTEND Internal Medicine
DX: L03.113 Cellulitis of right upper limb (principal); N17.9 Acute kidney failure, unspecified; I12.9 Hypertensive chronic kidney disease with stage 1 through stage 4 chronic kidney disease, or unspecified chronic kidney disease; E11.22 Type 2 diabetes mellitus with diabetic chronic kidney disease; N18.3 Chronic kidney disease, stage 3 (moderate); Z79.4 Long term (current) use of insulin; M10.9 Gout, unspecified; N40.0 Benign prostatic hyperplasia without lower urinary tract symptoms; E78.5 Hyperlipidemia, unspecified
CPT/HCPCS: 36415; 80048; 80053; 80202; 81001; 82550; 82553; 82948; 83605; 83735; 84484; 84550; 85025; 85610; 85651; 85730; 86140; 87040; 87086; 87635; 90471; 90714; 93971; 99284; J0692; J1650; J1815; J2405; J2543; J3370; J7030; J7050

== ENCOUNTER 2021-12-25 09:02 | Inpatient (IN) | payer MEDICARE ==
[~2021-12-25] VITALS: Ht 167.6 cm; Wt 103.4 kg
[~2021-12-25 09:02] MED LIST: ASPIR 8181 MG PO; ATORVASTATIN CA20 MG PO; CARVEDILOL3.125 MG PO; FLECTOR1 EACH; FLOMAX0.4 MG PO; GLIMEPIRIDE4 MG PO; LANTUS 3ML100 UNITS/ SC; LISINOPRIL-HCT1 EACH PO; NOVOLOG100 UNIT/1 SC; OMEGA 3 1,0001 EACH PO; TIZANIDINE HCL4 M1 PO; ULTRAM50 MG PO
[2021-12-25] MEDS ORDERED: ONDANSETRON HCL INJ 2MG/ML 2ML 2 MG/ML VIAL IV STA (09:34)
[2021-12-25] MEDS ORDERED: Morphine 4mg INJECTION 4 MG/ML INJ IV STA (09:34)
[2021-12-25] MEDS ORDERED: SODIUM CHLORIDE 0.9% 1000ML 1,000 ML IV STA (09:34)
[2021-12-25] MEDS ORDERED: METHYLPREDNISOLONE SOD SUCC 125 MG/2ML VIAL IV STA (09:34)
[2021-12-25 10:04] LABS: BASOPHILS % 0.1 % (0.0-1.0); EOSINOPHILS % 0.2 % (0.0-6.0); HEMATOCRIT 36.7 % (38.2-49.6); HEMOGLOBIN 12.1 g/dL (14.0-18.0); LYMPHOCYTES # (AUTO) 2.2 (1.0-3.2); MEAN CORPUSCULAR HEMOGLOBIN 31.3 pg (28-32); MEAN CORPUSCULAR VOLUME 95.1 fL (81-99); MONOCYTES # (AUTO) 1.6 (0.2-0.8); NEUTROPHILS # (AUTO) 10.6 (2.1-6.9); NEUTROPHILS % 72.3 % (38.7-80.0); PLATELET COUNT 290 x10e3/uL (140-360); RED BLOOD COUNT 3.86 x10e6/uL (4.3-5.7); RED CELL DISTRIBUTION WIDTH 14.5 % (11.7-14.4)
[2021-12-25 10:43] LABS: ALBUMIN 2.5 g/dL (3.5-5.0); ALBUMIN/GLOBULIN RATIO 0.5 (0.8-2.0); CALCIUM 9.4 mg/dL (8.4-10.2); CREATININE, SERUM 2.74 mg/dL (0.72-1.25); MAGNESIUM 2.5 MG/DL (1.3-2.1)
[2021-12-25] MEDS ORDERED: Morphine 4mg INJECTION 4 MG/ML INJ IV PRN (11:00)
[2021-12-25] MEDS ORDERED: SODIUM CHLORIDE 0.9% 1000ML 1,000 ML IV ONE (11:00)
[2021-12-25] MEDS ORDERED: ONDANSETRON HCL INJ 2MG/ML 2ML 2 MG/ML VIAL IV PRN (11:00)
[2021-12-25 11:06] LABS: CREATINE KINASE MB 6.6 ng/mL (0-5.0)
[2021-12-25] MEDS ORDERED: DEXTROSE 50% SYRINGE 50 ML IV PRN (14:45)
[2021-12-25] MEDS: SODIUM CHLORIDE 0.9% 1000ML 1,000 ML IV SCH (15:30)
[2021-12-25 15:45] VITALS: BP 143/82
[2021-12-25 15:56] VITALS: BP 143/82
[2021-12-25] MEDS: SODIUM BICARBONATE 8.4% 50 ML in SODIUM CHLORIDE 0.45% 1,000 ML IV SCH (16:00)
[2021-12-25] MEDS ORDERED: METHYLPREDNISOLONE SOD SUCC 125 MG/2ML VIAL IV ONE (16:00)
[2021-12-25] MEDS: INSULIN LISPRO 100 UNIT/1 ML 3ML VIAL SQ SCH ×2 (16:30→21:21)
[2021-12-25] MEDS ORDERED: COLCHICINE 0.6 MG TAB PO SCH (17:00)
[2021-12-25] MEDS ORDERED: SODIUM CHLORIDE 0.9% 1000ML 1,000 ML IV SCH (17:00)
[2021-12-25 21:00] VITALS: BP 124/79
[2021-12-26] MEDS: SODIUM CHLORIDE 0.9% 1000ML 1,000 ML IV SCH (01:30)
[2021-12-26] MEDS: SODIUM BICARBONATE 8.4% 50 ML in SODIUM CHLORIDE 0.45% 1,000 ML IV SCH ×3 (02:09→22:46)
[2021-12-26 02:27] VITALS: BP 131/78
[2021-12-26 04:00] VITALS: BP 164/93
[2021-12-26 07:13] LABS: BASOPHILS % 0.1 % (0.0-1.0); HEMATOCRIT 38.9 % (38.2-49.6); HEMOGLOBIN 12.8 g/dL (14.0-18.0); LYMPHOCYTES % 7.8 % (18.0-39.1); MEAN CORPUSCULAR HGB CONC 32.9 g/dL (31-35); MEAN CORPUSCULAR VOLUME 94.2 fL (81-99); MONOCYTES # (AUTO) 0.5 (0.2-0.8); MONOCYTES % 3.7 % (4.4-11.3); NEUTROPHILS # (AUTO) 10.8 (2.1-6.9); PLATELET COUNT 300 x10e3/uL (140-360); RED BLOOD COUNT 4.13 x10e6/uL (4.3-5.7); RED CELL DISTRIBUTION WIDTH 14.1 % (11.7-14.4)
[2021-12-26] MEDS: INSULIN LISPRO 100 UNIT/1 ML 3ML VIAL SQ SCH ×4 (07:30→21:16)
[2021-12-26 07:44] VITALS: BP 152/75
[2021-12-26 07:53] LABS: ALBUMIN 2.3 g/dL (3.5-5.0); ALBUMIN/GLOBULIN RATIO 0.5 (0.8-2.0); ANION GAP 16.5 mmol/L (8-16); CREATININE, SERUM 2.13 mg/dL (0.72-1.25); POTASSIUM 3.5 mmol/L (3.5-5.1)
[2021-12-26 08:33] VITALS: BP 152/75
[2021-12-26] MEDS: GLIMEPIRIDE 2 MG TAB PO SCH ×2 (09:44→17:30)
[2021-12-26 13:03] VITALS: BP 138/67
[2021-12-26] MEDS ORDERED: METHYLPREDNISOLONE SOD SUCC 125 MG/2ML VIAL IV ONE ×2 (13:30→17:45)
[2021-12-26] MEDS: COLCHICINE 0.6 MG TAB PO SCH (17:00)
[2021-12-26 20:00] VITALS: BP 128/54
[2021-12-26] MEDS: HEPARIN SOD (PORCINE) 5,000 UNIT/ML VIAL SC SCH (21:16)
[2021-12-27] VITALS (7 sets, daily range): BP systolic 124–165; BP diastolic 60–85
[2021-12-27 08:36] LABS: BASOPHILS % 0.1 % (0.0-1.0); HEMATOCRIT 36.7 % (38.2-49.6); HEMOGLOBIN 12.4 g/dL (14.0-18.0); LYMPHOCYTES # (AUTO) 1.1 (1.0-3.2); LYMPHOCYTES % 8.1 % (18.0-39.1); MEAN CORPUSCULAR HEMOGLOBIN 31.5 pg (28-32); MEAN CORPUSCULAR HGB CONC 33.8 g/dL (31-35); MEAN CORPUSCULAR VOLUME 93.1 fL (81-99); MONOCYTES # (AUTO) 0.8 (0.2-0.8); NEUTROPHILS # (AUTO) 11.5 (2.1-6.9); NEUTROPHILS % 85.3 % (38.7-80.0); PLATELET COUNT 330 x10e3/uL (140-360); RED BLOOD COUNT 3.94 x10e6/uL (4.3-5.7)
[2021-12-27] MEDS: HEPARIN SOD (PORCINE) 5,000 UNIT/ML VIAL SC SCH ×2 (09:00→22:02)
[2021-12-27 09:20] LABS: ALBUMIN 2.1 g/dL (3.5-5.0); ALBUMIN/GLOBULIN RATIO 0.4 (0.8-2.0); ANION GAP 16.4 mmol/L (8-16); CALCIUM 8.8 mg/dL (8.4-10.2); CREATININE, SERUM 1.83 mg/dL (0.72-1.25); POTASSIUM 3.4 mmol/L (3.5-5.1)
[2021-12-27] MEDS: GLIMEPIRIDE 2 MG TAB PO SCH ×2 (09:25→17:19)
[2021-12-27] MEDS: COLCHICINE 0.6 MG TAB PO SCH ×2 (09:25→17:19)
[2021-12-27] MEDS ORDERED: POTASSIUM CHLORIDE 20 MEQ TAB CR PO ONE (11:30)
[2021-12-27] MEDS ORDERED: CYCLOBENZAPRINE HCL 10 MG TAB PO PRN (11:45)
[2021-12-27] MEDS: INSULIN LISPRO 100 UNIT/1 ML 3ML VIAL SQ SCH ×4 (12:00→22:02)
[2021-12-27] MEDS: PREDNISONE 20 MG TAB PO SCH (12:15)
[2021-12-27] MEDS ORDERED: CYCLOBENZAPRINE HCL 10 MG TAB PO ONE (12:30)
[2021-12-27 13:47] LABS: CLARITY,URINE CLEAR (CLEAR); COLOR,URINE YELLOW (YELLOW); LEUKOCYTE ESTERASE ,URINE NEGATIVE (NEGATIVE); NITRITE,URINE NEGATIVE (NEGATIVE); PROTEIN,URINE DIPSTICK NEGATIVE (NEGATIVE)
[2021-12-27 13:48] LABS: KETONES,URINE NEGATIVE (NEGATIVE); URINE UROBILINOGEN 0.2 mg/dL (0.2 - 1)
[2021-12-27 13:51] LABS: BACTERIA,URINE FEW /HPF; EPITHELIAL CELLS,URINE RARE /LPF; WBC,URINE (MAN) 0-5 /HPF (0-5)
[2021-12-27 14:07] LABS: CREATININE,URINE RANDOM 63.19 mg/dL (63-166); TOTAL PROTEIN, URINE 23.8 mg/dL (1-14)
[2021-12-27 14:10] LABS: PROTEIN/CREATININE RATIO,URINE 0.38
[2021-12-27] MEDS: TRAMADOL HCL 50 MG TAB PO PRN (17:40)
[2021-12-28] VITALS (7 sets, daily range): BP systolic 140–174; BP diastolic 62–98
[2021-12-28 08:04] LABS: ANION GAP 13.2 mmol/L (8-16); CALCIUM 8.5 mg/dL (8.4-10.2); CREATININE, SERUM 1.61 mg/dL (0.72-1.25); MAGNESIUM 2.8 MG/DL (1.3-2.1); POTASSIUM 4.2 mmol/L (3.5-5.1)
[2021-12-28] MEDS: COLCHICINE 0.6 MG TAB PO SCH (09:11)
[2021-12-28] MEDS: PREDNISONE 20 MG TAB PO SCH (09:11)
[2021-12-28] MEDS: GLIMEPIRIDE 2 MG TAB PO SCH ×2 (09:11→16:44)
[2021-12-28] MEDS: HEPARIN SOD (PORCINE) 5,000 UNIT/ML VIAL SC SCH ×2 (09:12→20:43)
[2021-12-28] MEDS: TRAMADOL HCL 50 MG TAB PO PRN (09:13)
[2021-12-28] MEDS: INSULIN LISPRO 100 UNIT/1 ML 3ML VIAL SQ SCH ×4 (09:13→20:43)
[2021-12-28 09:33] LABS: BASOPHILS % 0.1 % (0.0-1.0); EOSINOPHILS % 0.1 % (0.0-6.0); HEMATOCRIT 38.1 % (38.2-49.6); HEMOGLOBIN 12.3 g/dL (14.0-18.0); LYMPHOCYTES # (AUTO) 1.7 (1.0-3.2); LYMPHOCYTES % 18.8 % (18.0-39.1); MEAN CORPUSCULAR HEMOGLOBIN 31.2 pg (28-32); MEAN CORPUSCULAR HGB CONC 32.3 g/dL (31-35); MEAN CORPUSCULAR VOLUME 96.7 fL (81-99); MONOCYTES # (AUTO) 0.9 (0.2-0.8); MONOCYTES % 9.8 % (4.4-11.3); NEUTROPHILS # (AUTO) 6.2 (2.1-6.9); NEUTROPHILS % 70.7 % (38.7-80.0); PLATELET COUNT 318 x10e3/uL (140-360); RED BLOOD COUNT 3.94 x10e6/uL (4.3-5.7); RED CELL DISTRIBUTION WIDTH 14.5 % (11.7-14.4)
[2021-12-28] MEDS ORDERED: HYDRALAZINE HCL 20 MG/ML VIAL IV PRN (13:00)
[2021-12-28] MEDS ORDERED: LISINOPRIL 20 MG TAB PO SCH (13:00)
[2021-12-28] MEDS ORDERED: NIFEDIPINE CR 30 MG TAB PO SCH (21:00)
[2021-12-29] VITALS: BP 152/84
[2021-12-29 04:00] VITALS: BP 149/72
[2021-12-29 07:30] LABS: ANION GAP 13.6 mmol/L (8-16); CALCIUM 8.2 mg/dL (8.4-10.2); CREATININE, SERUM 1.45 mg/dL (0.72-1.25); POTASSIUM 3.6 mmol/L (3.5-5.1)
[2021-12-29] MEDS: INSULIN LISPRO 100 UNIT/1 ML 3ML VIAL SQ SCH ×2 (07:30→11:30)
[2021-12-29 08:12] VITALS: BP 143/84
[2021-12-29 08:45] VITALS: BP 143/84
[2021-12-29] MEDS: GLIMEPIRIDE 2 MG TAB PO SCH (08:48)
[2021-12-29] MEDS: PREDNISONE 20 MG TAB PO SCH (08:48)
[2021-12-29] MEDS: HEPARIN SOD (PORCINE) 5,000 UNIT/ML VIAL SC SCH (09:39)
[2021-12-29 11:26] VITALS: BP 158/69
[2021-12-29] MEDS ORDERED: ONDANSETRON HCL 4 MG ORAL DISINTEGRATING TAB PO PRN (14:30)
[2021-12-29 15:48] VITALS: BP 160/88
[2021-12-30] MEDS ORDERED: ALLOPURINOL 300 MG TAB PO SCH (09:00)
== END 2021-12-29 16:07 | disposition home or self-care (01) | DRG 682 ==
LOC: ER 09:12 → ERHOLD 11:07 → MED/SURG3 15:25
PROVIDERS: ADMIT Internal Medicine; ATTEND Internal Medicine
DX: N17.9 Acute kidney failure, unspecified (principal); U07.1 COVID-19; M62.82 Rhabdomyolysis; I12.9 Hypertensive chronic kidney disease with stage 1 through stage 4 chronic kidney disease, or unspecified chronic kidney disease; E11.22 Type 2 diabetes mellitus with diabetic chronic kidney disease; M10.9 Gout, unspecified; Z79.899 Other long term (current) drug therapy; N40.0 Benign prostatic hyperplasia without lower urinary tract symptoms; N18.32 Chronic kidney disease, stage 3b; M06.862 Other specified rheumatoid arthritis, left knee; M06.861 Other specified rheumatoid arthritis, right knee
CPT/HCPCS: 36415; 76770; 80048; 80053; 81001; 82550; 82553; 82570; 82948; 83735; 84156; 84484; 84550; 85025; 85651; 86021; 86039; 86141; 87040; 87086; 87186; 93005; 94799; 96361; 97139; 99285; J0360; J0696; J1644; J2270; J2405; J2930; J7030; J7512

== ENCOUNTER 2022-04-28 09:02 | Emergency (ER) | payer MEDICARE ==
[~2022-04-28] VITALS: Ht 167.6 cm; Wt 103.4 kg
== END 2022-04-28 10:04 | disposition home or self-care (01) ==
LOC: ER 09:15
DX: I10 Essential (primary) hypertension (principal); E11.9 Type 2 diabetes mellitus without complications; E78.5 Hyperlipidemia, unspecified; M10.9 Gout, unspecified; Z96.652 Presence of left artificial knee joint
CPT/HCPCS: 99282

== ENCOUNTER 2024-07-08 13:35 | Inpatient (IN) | payer MEDICARE ==
[2024-07-08] VITALS (8 sets, daily range): BP systolic 90–122; BP diastolic 41–55; PULSE 74–80; RESP 16–20; TEMP 96.7–98.2; O2SAT 97–100
[~2024-07-08] VITALS: Ht 167.6 cm; Wt 99.8 kg
[2024-07-08 14:20] LABS: BASOPHILS % 0.2 % (0.0-1.0); EOSINOPHILS # (AUTO) 0.3 (0.0-0.4); EOSINOPHILS % 2.4 % (0.0-6.0); HEMATOCRIT 34.5 % (38.2-49.6); HEMOGLOBIN 11.2 g/dL (14.0-18.0); LYMPHOCYTES # (AUTO) 3.3 (1.0-3.2); LYMPHOCYTES % 26.5 % (18.0-39.1); MEAN CORPUSCULAR HEMOGLOBIN 31.7 pg (28-32); MEAN CORPUSCULAR HGB CONC 32.5 g/dL (31-35); MEAN CORPUSCULAR VOLUME 97.7 fL (81-99); MONOCYTES % 8.2 % (4.4-11.3); NEUTROPHILS # (AUTO) 7.8 (2.1-6.9); NEUTROPHILS % 62.2 % (38.7-80.0); PLATELET COUNT 205 x10e3/uL (140-360); RED BLOOD COUNT 3.53 x10e6/uL (4.3-5.7); WHITE BLOOD COUNT 12.55 x10e3/uL (4.8-10.8)
[2024-07-08] MEDS: LACTATED RINGER'S 1,000 ML INJ ONE (14:22)
[2024-07-08] MEDS: KETOROLAC TROMETHAMINE 30 MG/ML VIAL IV STA (14:22)
[2024-07-08 14:53] LABS: ANION GAP 17.3 mmol/L (8-16); CREATININE, SERUM 5.42 mg/dL (0.72-1.25); POTASSIUM 4.3 mmol/L (3.5-5.1)
[2024-07-08 15:24] LABS: BAND NEUTROPHILS % (MANUAL) 1 %; BLAST CELLS % MANUAL 1; EOSINOPHILS % (MANUAL) 2 % (0-7); LYMPHOCYTES % (MANUAL) 22 % (19-48); MONOCYTES % (MANUAL) 8 % (3.4-9.0); NEUTROPHILS % (MANUAL) 66 % (40-74); PLATELET ESTIMATE ADEQUATE; PLATELET MORPHOLOGY COMMENT NORMAL; RBC MORPHOLOGY COMMENT NORMAL
[2024-07-08 15:26] LABS: ANISOCYTOSIS SLIGHT; HYPOCHROMASIA SLIGHT; POIKILOCYTOSIS SLIGHT
[2024-07-08 15:27] LABS: ROULEAU MODERATE
[2024-07-08] MEDS: SODIUM CHLORIDE 0.9% 1000ML 1,000 ML IV SCH (15:46)
[2024-07-08] MEDS ORDERED: ONDANSETRON HCL INJ 2MG/ML 2ML 2 MG/ML VIAL IV PRN (17:00)
[2024-07-08] MEDS ORDERED: HYDRALAZINE HCL 20 MG/ML VIAL IV PRN (17:00)
[2024-07-08] MEDS ORDERED: DEXTROSE 50% SYRINGE 50 ML IV PRN (17:00)
[2024-07-08] MEDS ORDERED: ACETAMINOPHEN 325 MG TAB PO PRN (17:00)
[2024-07-08] MEDS ORDERED: HYDROCODONE/APAP 5MG-325MG TAB PO PRN (17:00)
[2024-07-08] MEDS: CARVEDILOL 3.125 MG TAB PO SCH ×2 (17:00→21:18)
[2024-07-08] MEDS ORDERED: LISINOPRIL10 MG PO (18:12)
[2024-07-08] MEDS ORDERED: PROTONIX20 MG PO (18:12)
[2024-07-08] MEDS ORDERED: ALLOPURINOL100 MG PO (18:12)
[2024-07-08] MEDS ORDERED: AMLODIPINE BESYL5 MG PO (18:12)
[2024-07-08] MEDS ORDERED: JARDIANCE10 MG PO (18:12)
[2024-07-08] MEDS ORDERED: cholecalciferol PO (18:12)
[2024-07-08] MEDS ORDERED: NEURONTIN300 MG PO (18:12)
[2024-07-08 19:39] LABS: ALBUMIN 2.7 g/dL (3.5-5.0); ALBUMIN/GLOBULIN RATIO 0.7 (0.8-2.0); ANION GAP 17.5 mmol/L (8-16); BILIRUBIN,TOTAL 0.4 mg/dL (0.2-1.2); CALCIUM 8.9 mg/dL (8.4-10.2); CREATININE, SERUM 5.3 mg/dL (0.72-1.25); POTASSIUM 4.5 mmol/L (3.5-5.1); TOTAL PROTEIN 6.8 g/dL (6.5-8.1)
[2024-07-08 20:13] LABS: CLARITY,URINE CLEAR (CLEAR); COLOR,URINE YELLOW (YELLOW); PH,URINE 5.5 (5 - 7)
[2024-07-08 20:14] LABS: BILIRUBIN,URINE NEGATIVE (NEGATIVE); GLUCOSE, URINE 500 (NEGATIVE); KETONES,URINE NEGATIVE (NEGATIVE); LEUKOCYTE ESTERASE ,URINE NEGATIVE (NEGATIVE); NITRITE,URINE NEGATIVE (NEGATIVE); PROTEIN,URINE DIPSTICK 1+ (NEGATIVE); URINE UROBILINOGEN 0.2 mg/dL (0.2 - 1)
[2024-07-08 20:24] LABS: BACTERIA,URINE MANY /HPF; EPITHELIAL CELLS,URINE FEW /LPF; MUCUS,URINE MODERATE (RARE); RBC,URINE 0-5 /HPF (0-5); WBC,URINE (MAN) 0-5 /HPF (0-5)
[2024-07-08 20:25] LABS: AMORPHOUS SEDIMENT,URINE FEW (FEW)
[2024-07-08 20:30] LABS: SODIUM,URINE 54 mmol/L
[2024-07-08] MEDS: OMEGA 3 POLYUNSAT FATTY ACIDS 1000 MG SOFTGEL PO SCH (21:17)
[2024-07-08] MEDS: ATORVASTATIN 40 MG TAB PO SCH (21:18)
[2024-07-08] MEDS: INSULIN LISPRO 100 UNIT/1 ML 3ML VIAL SQ SCH (21:24)
[2024-07-08] MEDS: ALLOPURINOL 100 MG TAB PO SCH (22:13)
[2024-07-09] VITALS: BP 110/60; PULSE 75; RESP 20; TEMP 97.5; O2SAT 94
[2024-07-09 04:00] VITALS: BP 119/65; PULSE 72; RESP 20; TEMP 97.6; O2SAT 98
[2024-07-09 07:02] LABS: BASOPHILS % 0.1 % (0.0-1.0); EOSINOPHILS # (AUTO) 0.6 (0.0-0.4); HEMATOCRIT 33.9 % (38.2-49.6); LYMPHOCYTES # (AUTO) 2.7 (1.0-3.2); LYMPHOCYTES % 35.1 % (18.0-39.1); MEAN CORPUSCULAR HEMOGLOBIN 31.7 pg (28-32); MEAN CORPUSCULAR HGB CONC 32.4 g/dL (31-35); MEAN CORPUSCULAR VOLUME 97.7 fL (81-99); MONOCYTES # (AUTO) 0.7 (0.2-0.8); MONOCYTES % 9.1 % (4.4-11.3); NEUTROPHILS # (AUTO) 3.6 (2.1-6.9); NEUTROPHILS % 47.3 % (38.7-80.0); PLATELET COUNT 200 x10e3/uL (140-360); RED BLOOD COUNT 3.47 x10e6/uL (4.3-5.7); RED CELL DISTRIBUTION WIDTH 15.2 % (11.7-14.4); WHITE BLOOD COUNT 7.58 x10e3/uL (4.8-10.8)
[2024-07-09 07:25] LABS: ANION GAP 15.3 mmol/L (8-16); CALCIUM 8.7 mg/dL (8.4-10.2); CREATININE, SERUM 4.56 mg/dL (0.72-1.25); POTASSIUM 4.3 mmol/L (3.5-5.1)
[2024-07-09 08:59] LABS: EOSINOPHILS % (MANUAL) 12 % (0-7); LYMPHOCYTES % (MANUAL) 38 % (19-48); MONOCYTES % (MANUAL) 7 % (3.4-9.0); NEUTROPHILS % (MANUAL) 43 % (40-74); PLATELET ESTIMATE ADEQUATE; PLATELET MORPHOLOGY COMMENT NORMAL; RBC MORPHOLOGY COMMENT NORMAL
[2024-07-09 09:09] VITALS: BP 123/69; PULSE 75; RESP 20; TEMP 97.5; O2SAT 98
[2024-07-09] MEDS: ASPIRIN 81 MG CHEW TAB PO SCH (09:09)
[2024-07-09] MEDS: TAMSULOSIN HCL 0.4 MG CAP PO SCH (09:10)
[2024-07-09 09:20] VITALS: BP 123/69; PULSE 77; RESP 20; TEMP 97.5; O2SAT 98
[2024-07-09 11:37] VITALS: BP 113/69; PULSE 76; RESP 20; TEMP 98.2; O2SAT 98
[2024-07-09 20:00] VITALS: BP 150/71; PULSE 72; RESP 20; TEMP 97.9; O2SAT 99
[2024-07-09] MEDS: GABAPENTIN 300 MG CAP PO SCH (20:40)
[2024-07-09] MEDS: DOCUSATE SODIUM 100 MG CAP PO SCH (20:40)
[2024-07-09] MEDS: LACTATED RINGER'S 1,000 ML INJ SCH (20:42)
[2024-07-09] MEDS: AMLODIPINE BESYLATE 5 MG TAB PO SCH (20:45)
[2024-07-09] MEDS ORDERED: GABAPENTIN 300 MG CAP PO SCH (21:00)
[2024-07-10] VITALS (8 sets, daily range): BP systolic 126–151; BP diastolic 52–78; PULSE 71–88; RESP 18–20; TEMP 97.7–98.4; O2SAT 97–99
[2024-07-10 05:25] LABS: BASOPHILS % 0.1 % (0.0-1.0); EOSINOPHILS # (AUTO) 0.5 (0.0-0.4); EOSINOPHILS % 5.4 % (0.0-6.0); HEMATOCRIT 35.5 % (38.2-49.6); HEMOGLOBIN 11.6 g/dL (14.0-18.0); LYMPHOCYTES # (AUTO) 1.5 (1.0-3.2); MEAN CORPUSCULAR HEMOGLOBIN 31.6 pg (28-32); MEAN CORPUSCULAR HGB CONC 32.7 g/dL (31-35); MEAN CORPUSCULAR VOLUME 96.7 fL (81-99); MONOCYTES # (AUTO) 0.8 (0.2-0.8); MONOCYTES % 9.7 % (4.4-11.3); NEUTROPHILS # (AUTO) 5.7 (2.1-6.9); NEUTROPHILS % 66.7 % (38.7-80.0); PLATELET COUNT 208 x10e3/uL (140-360); RED BLOOD COUNT 3.67 x10e6/uL (4.3-5.7); WHITE BLOOD COUNT 8.57 x10e3/uL (4.8-10.8)
[2024-07-10 05:53] LABS: ANION GAP 15.3 mmol/L (8-16); CREATININE, SERUM 3.31 mg/dL (0.72-1.25); POTASSIUM 4.3 mmol/L (3.5-5.1)
[2024-07-10] MEDS: ALLOPURINOL 100 MG TAB PO SCH (08:05)
[2024-07-11] VITALS: BP 151/82; PULSE 76; RESP 20; TEMP 97.7; O2SAT 98
[2024-07-11 04:00] VITALS: BP 127/68; PULSE 69; RESP 20; TEMP 97.7; O2SAT 97
[2024-07-11 06:28] LABS: BASOPHILS % 0.1 % (0.0-1.0); EOSINOPHILS # (AUTO) 0.7 (0.0-0.4); EOSINOPHILS % 8.4 % (0.0-6.0); HEMOGLOBIN 11.2 g/dL (14.0-18.0); LYMPHOCYTES # (AUTO) 2.3 (1.0-3.2); LYMPHOCYTES % 28.7 % (18.0-39.1); MEAN CORPUSCULAR HEMOGLOBIN 31.5 pg (28-32); MEAN CORPUSCULAR VOLUME 98.3 fL (81-99); MONOCYTES # (AUTO) 0.7 (0.2-0.8); MONOCYTES % 8.8 % (4.4-11.3); NEUTROPHILS # (AUTO) 4.3 (2.1-6.9); NEUTROPHILS % 53.6 % (38.7-80.0); PLATELET COUNT 214 x10e3/uL (140-360); RED BLOOD COUNT 3.56 x10e6/uL (4.3-5.7); RED CELL DISTRIBUTION WIDTH 15.1 % (11.7-14.4); WHITE BLOOD COUNT 7.99 x10e3/uL (4.8-10.8)
[2024-07-11 06:58] LABS: CREATININE, SERUM 2.54 mg/dL (0.72-1.25)
[2024-07-11 08:54] VITALS: BP 151/72
== END 2024-07-11 12:06 | disposition home or self-care (01) | DRG 641 ==
LOC: ER 14:05 → ERHOLD 15:36 → MED/SURG 16:18 → OBSVTOIN 07-10 09:45
PROVIDERS: ADMIT Internal Medicine; ATTEND Internal Medicine
DX: E86.0 Dehydration (principal); N17.9 Acute kidney failure, unspecified; I12.9 Hypertensive chronic kidney disease with stage 1 through stage 4 chronic kidney disease, or unspecified chronic kidney disease; E11.22 Type 2 diabetes mellitus with diabetic chronic kidney disease; N18.30 Chronic kidney disease, stage 3 unspecified; M06.9 Rheumatoid arthritis, unspecified; M10.9 Gout, unspecified; E78.5 Hyperlipidemia, unspecified; N28.89 Other specified disorders of kidney and ureter; N40.0 Benign prostatic hyperplasia without lower urinary tract symptoms; M54.9 Dorsalgia, unspecified; T38.3X6A Underdosing of insulin and oral hypoglycemic [antidiabetic] drugs, initial encounter; Z91.120 Patient's intentional underdosing of medication regimen due to financial hardship; Z79.84 Long term (current) use of oral hypoglycemic drugs; Z79.4 Long term (current) use of insulin; Z79.82 Long term (current) use of aspirin; Z87.891 Personal history of nicotine dependence
CPT/HCPCS: 36415; 76770; 80048; 80053; 81001; 82948; 84300; 85025; 94799; 99284; G0378; J1885; J7030